=== PATIENT | male | born 1975 | race Native Hawaiian/Other Pacific Islander ===

== ENCOUNTER 2023-03-15 11:40 | Emergency (ER) | payer OTHER ==
[~2023-03-15] VITALS: Ht 172.7 cm; Wt 89.8 kg
[2023-03-15 11:55] VITALS: BP 148/101; TEMP 98.1
== END 2023-03-15 12:14 | disposition home or self-care (01) ==
LOC: ED 11:40
DX: S51.811A Laceration without foreign body of right forearm, initial encounter (principal); W19.XXXA Unspecified fall, initial encounter; Z72.0 Tobacco use; Z23 Encounter for immunization
CPT/HCPCS: 87070; 87077; 87205; 90471; 90472; 99283